=== PATIENT | female | born 1950 | race Caucasian/White ===

== ENCOUNTER → 2017-02-12 | Outpatient (CLI) | payer MEDICARE ==
[2017-02-12 11:52] LABS: Basophils # (A) 0.1 k/uL (0-0.2); Basophils % (A) 1 %; CH 28.2; CHCM 31.8; Eosinophils # (A) 0.2 k/uL (0-0.7); Eosinophils % (A) 2 %; HCT 43.5 % (34.0-46.0); HDW 2.32; Luc # (Auto) 0.19; Luc % (Auto) 3; Lymphocytes # (A) 1.7 k/uL (1.0-4.8); Lymphocytes % (A) 21 %; MCH 28.6 pg (25.0-35.0); MCHC 32.2 g/dL (31.0-37.0); Monocytes # (A) 0.4 k/uL (0-1.0); Monocytes % (A) 6 %; Neutrophils # (A) 5.2 k/uL (1.3-7.7); Neutrophils % (A) 67 %; RBC 4.89 m/uL (3.80-5.40); RDW 14.1 % (11.5-15.5); WBC 7.8 k/uL (3.8-10.6); WBC (Perox) 7.99
[2017-02-12 12:13] LABS: ALT 36 U/L (9-52); AST 25 U/L (14-36); Alkaline Phosphatase 89 U/L (38-126); Anion Gap 9 mmol/L; Blood Urea Nitrogen 14 mg/dL (7-17); Calcium 9.3 mg/dL (8.4-10.2); Carbon Dioxide 28 mmol/L (22-30); Chloride 105 mmol/L (98-107); Cholesterol 207 mg/dL (<200); Glucose 94 mg/dL (74-99); HDL Cholesterol 48 mg/dL (40-60); Non-African American GFR(MDRD) >60 (>60 ml/min/1.73 sqM); Potassium 4.6 mmol/L (3.5-5.1); Sodium 142 mmol/L (137-145); Total Bilirubin 0.7 mg/dL (0.2-1.3); Total Protein 7.4 g/dL (6.3-8.2); Triglycerides 107 mg/dL (<150)
== END | disposition home or self-care (01) ==
LOC: LABWHC1 10:56
PROVIDERS: ATTEND Internal Medicine
DX: E78.2 Mixed hyperlipidemia (principal); I10 Essential (primary) hypertension
CPT/HCPCS: 36415; 80053; 80061; 85025

== ENCOUNTER 2017-03-17 13:37 | Emergency (ER) | payer MEDICARE ==
[2017-03-17 13:50] VITALS: BP 112/74; PULSE 76; RESP 18; TEMP 98
--- NOTE | 2017-03-17 14:27 | ED ---
Skin/Abscess/FB HPI - General Chief complaint: Skin/Abscess/Foreign Body Stated complaint: Rash on Leg Time Seen by Provider: 03/17/17 14:00 Source: patient, RN notes reviewed Mode of arrival: ambulatory Limitations: no limitations - History of Present Illness Initial comments: This is a 66-year-old female with a history of previous lower extremity cellulitis who presents today with complaints of her rash to both sides of her medial shins. She states she's had been gardening and doing a lot of work and sitting on her legs also walking around and rocks recently she states she believes the rash again somewhat better after elevation last night when she slipped. She denies any fevers chills or sweats. No she is however getting over a recent attack of shingles to the left side of her back. She has no other complaints this time no open wounds to report to. MD complaint: rash - Related Data Allergies Allergy/AdvReac Type Severity Reaction Status Date / Time No Known Allergies Allergy Verified 03/17/17 13:50 Review of Systems ROS Statement: Those systems with pertinent positive or pertinent negative responses have been documented in the HPI. ROS Other: All systems not noted in ROS Statement are negative. Past Medical History Past Medical History: Cancer, Hyperlipidemia, Hypertension Additional Past Medical History / Comment(s): breast cancer History of Any Multi-Drug Resistant Organisms: None Reported Additional Past Surgical History / Comment(s): right mastectomy and reconstruction Past Psychological History: No Psychological Hx Reported Smoking Status: Former smoker Past Alcohol Use History: Occasional Past Drug Use History: None Reported General Exam - General Exam Comments Initial Comments: This is a well-developed well-nourished awake alert oriented 3 female Limitations: no limitations General appearance: alert, in no apparent distress Head exam: Present: atraumatic Eye exam: Present: normal appearance Neck exam: Present: normal inspection Extremities exam: Present: full ROM, normal capillary refill, other (There is a rash noted to both lower extremities anterior medially it does not sparkle does appear to be consistent with H med etiology though there are no open wounds. Some petechial component to it. No edema no lymphangitis no increased local temperature no obvious lymphadenopathy.). Absent: tenderness Neurological exam: Present: alert, oriented X3, CN II-XII intact Psychiatric exam: Present: normal affect, normal mood Skin exam: Present: warm, dry, intact, rash Course Vital Signs 03/17/17 13:45 Temperature 98.0 F Pulse Rate 76 Respiratory 18 Rate Blood Pressure 112/74 O2 Sat by Pulse 98 Oximetry Medical Decision Making - Medical Decision Making At this time no further workup was indicated the etiology appears to be from mild trauma. Patient was instructed about elevating her legs. She does have support stockings which are appropriate. I did recommend elevation of her legs to 3 times a day for 15-20 minutes at a time. As it does appear to be getting improved no further advice at this time is indicated. Disposition Clinical Impression: Petechial rash, Skin trauma Disposition: HOME SELF-CARE Condition: Good Instructions: Contusion in Adults (ED) Additional Instructions: Elevate your legs 3-4 times a day for 15-20 minutes. This is above your heart level. Referrals: Glenroy Weber MD [Primary Care Provider] - 1-2 days
== END 2017-03-17 14:41 | disposition home or self-care (01) ==
LOC: EC 13:37
DX: T14.8 Other injury of unspecified body region (principal); Z87.891 Personal history of nicotine dependence; W18.40XA Slipping, tripping and stumbling without falling, unspecified, initial encounter; Y92.69 Other specified industrial and construction area as the place of occurrence of the external cause; Y93.H2 Activity, gardening and landscaping
CPT/HCPCS: 99282

== ENCOUNTER → 2017-03-27 | Outpatient (CLI) | payer MEDICARE ==
--- NOTE | 2017-03-28 07:20 | WWHP ---
DATE OF SERVICE: 03/27/2017 CHIEF COMPLAINT: The patient is here for her routine gynecologic exam and mammogram. HPI: This is a 66-year-old G0 with an LMP of 2002. The patient is without gynecologic complaints and denies any postmenopausal bleeding. PAST MEDICAL HISTORY: Right breast cancer in 1990 and she is status post mastectomy with reconstruction, history of elevated cholesterol, seasonal allergies and chronic hypertension. She was also diagnosed with basal cell skin cancer. MEDICATIONS: 1. Lipitor 40 mg daily. 2. Lotrel 5/10 daily. 3. Desyrel q.h.s. 4. Lasix p.r.n. 5. Fish oil supplement daily. 6. CoQ10 daily. ALLERGIES: No known drug allergies. PAST SURGICAL HISTORY: Carpal tunnel surgery in 2015, tonsillectomy, right mastectomy in 1990, reconstructive breast surgery in 1990 and revision in 2002, left breast reduction surgery 2002 and colonoscopy [address] ADVOCATE HISTORY: She has been menopausal since 2002 and has no history of STDs. SOCIAL HISTORY: She quit smoking in 1990. She has about 2 to 3 alcoholic drinks per week and denies drug use. She is retired and has been since 1968. She spends the gustafson in [place]. FAMILY HISTORY: Paternal aunt had breast cancer. Sister had a PE. REVIEW OF SYSTEMS: She has lost about 6 pounds over the last year. She denies respiratory or cardiac problems. GI: Occasional stomach problems. She denies maltreatment or falling. : She denies any significant urinary leakage. PHYSICAL EXAM: Blood pressure 142/82. Height 5 feet 2 inches. Weight 232 pounds. Temperature 97.6, pulse 73. This is a well-developed, heavyset white female who is alert and oriented x3 in no acute distress. HEENT is within normal limits. NECK: Supple without mass or thyromegaly. CHEST AND LUNGS: Clear to auscultation. HEART: Regular rate and rhythm. Breasts are without mass or discharge. The right breast is consistent with previous mastectomy, status post reconstruction with an implant. There is no right breast nipple. Axillary exam is negative for adenopathy. BACK: Negative for CVA tenderness. ABDOMEN: Mildly obese, soft, nontender, without palpable masses. PELVIC EXAM: External genitalia reveals mild atrophy without lesions. Cervix and vagina reveal mild atrophy without lesions. There is no evidence of prolapse. The uterus is midposition, nongravid size and nontender. There are no palpable adnexal masses or tenderness. Rectovaginal exam is negative for mass or tenderness and is negative for occult blood. EXTREMITIES: Nontender. IMPRESSION: 1. A 66-year-old menopausal female with normal gynecologic exam. 2. History of right breast cancer with no evidence of recurrence. PLAN: 1. Pap smear was deferred since she had a normal one last year. 2. Self breast examination was discussed. 3. Left diagnostic mammogram will be done today. 4. Osteoporosis prevention was discussed. We will plan on repeating this in about 2020, since she states she had a normal one in 2014. 5. She does get flu shots in the fall. 6. She will return in one year.
--- NOTE | 2017-03-28 08:16 | MM ---
Reason for exam: additional evaluation requested from prior study. Last mammogram was performed 1 year ago. History: Patient is postmenopausal, has history of breast cancer at age 40, history of other cancer, and is nulliparous. Family history of breast cancer in paternal aunt. Silicone gel implant in the right breast, 2001. Reduction of the left breast. Physical Findings: Dr. Pérez did not find any significant physical abnormalities on exam. MG 3D Diag Mammo W/Cad LT CC, MLO, and XCCL view(s) were taken of the left breast. Prior study comparison: March 14, 2016, mammogram. March 11, 2016, mammogram. The breast tissue is heterogeneously dense. This may lower the sensitivity of mammography. Post surgical distortion middle left breast. No significant new findings when compared with previous films. These results were verbally communicated with the patient and result sheet given to the patient on 03/27/17. ASSESSMENT: Benign, BI-RAD 2 RECOMMENDATION: Follow-up diagnostic mammogram of the left breast in 1 year.
== END | disposition home or self-care (01) ==
LOC: WWCWWP 12:55
PROVIDERS: ATTEND Obstetrics & Gynecology
DX: Z85.3 Personal history of malignant neoplasm of breast (principal)
CPT/HCPCS: G0206; G0279

== ENCOUNTER → 2017-05-29 | Outpatient (CLI) | payer MEDICARE ==
--- NOTE | 2017-05-29 11:52 | XR ---
EXAMINATION TYPE: XR cervical spine comp DATE OF EXAM: 05/29/2017 COMPARISON: NONE HISTORY: 66-year-old female with cervical spine pain TECHNIQUE: 5 views FINDINGS: Bilateral hypertrophic facet arthropathy slightly greater on the right. Uncovertebral joint arthropat hy mid to lower cervical spine. No predental space widening or prevertebral soft tissue swelling. There is normal alignment of the ce rvical spine with mild to moderate degenerative disc interspace narrowing at C6-C7. The cervicothorac ic junction is obscured by the patient's shoulders not assessed. On the right, there is moderate bony spondylotic neuroforaminal narrowing at C3-C4 and C4-C5 and mild at C7. On the left, there is mild bony spondylotic neuroforaminal narrowing at C3-C4 and C5-C6 with severe a t C6-C7. Normal odontoid view. IMPRESSION: 1. The cervicothoracic junction is obscured by the patient's shoulders and not assessed. Otherwise, c ervical alignment is maintained. 2. Moderate multilevel spondylotic change especially with hypertrophic facet and uncovertebral joint arthropathy. 3. On the right, this results in moderate neural foraminal stenoses at C3-C4 and C4-C5 and severe on the left at C6-C7.
== END | disposition home or self-care (01) ==
LOC: RADXRMAIN 10:28
PROVIDERS: ATTEND Internal Medicine
DX: M99.71 Connective tissue and disc stenosis of intervertebral foramina of cervical region (principal); M47.812 Spondylosis without myelopathy or radiculopathy, cervical region; M46.02 Spinal enthesopathy, cervical region
CPT/HCPCS: 72050

== ENCOUNTER → 2018-04-02 | Outpatient (CLI) | payer MEDICARE ==
[2018-04-02 14:30] VITALS: BP 158/74; PULSE 80; RESP 18; TEMP 96.9; BMI 45.7
--- NOTE | 2018-04-02 14:57 | P.HPOB ---
History of Present Illness H&P Date: 04/02/18 Chief Complaint: The patient is here for her routine gynecologic exam and mammogram. This is a 67-year-old G0 with an LMP of 2002. The patient is without gynecologic complaints and denies any postmenopausal bleeding. Review of Systems Patient is gained 18 pounds over the last year. She denies respiratory, cardiac and G.I. problems. She denies maltreatment or problems with falling. : she denies any significant problems with urinary leakage. Past Medical History Past Medical History: Cancer (Right breast and basal cell skin cancer), Hyperlipidemia, Hypertension Additional Past Medical History / Comment(s): Seasonal allergies. 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 History of Any Multi-Drug Resistant Organisms: None Reported Past Surgical History: Breast Surgery (Right mastectomy in 1990 reconstructive breast surgery 1990 and revision in 2002.), Tonsillectomy Additional Past Surgical History / Comment(s): Colonoscopy 2009 and 2014. Past Psychological History: No Psychological Hx Reported Smoking Status: Former smoker (Quit 1990) Past Alcohol Use History: Occasional (0 3 per week) Past Drug Use History: None Reported Additional History: She's been since 1968 and is retired. Her has prostate cancer. She spends her gust[place]son in [place]. - Past Family History Sister(s) Family Medical History: Pulmonary Embolus Additional Family Medical History / Comment(s): Paternal aunt had breast cancer Medications and Allergies Home Medications Medication Instructions Recorded Confirmed Type Atorvastatin [Lipitor] 40 mg PO DAILY 04/02/18 04/02/18 History Furosemide [Lasix] 20 mg PO DAILY 04/02/18 04/02/18 History amLODIPine BESYLATE/BENAZEPRIL 1 cap PO DAILY 04/02/18 04/02/18 History [Lotrel 10-20 mg Capsule] traZODone HCL [Desyrel] 50 mg PO DAILY 04/02/18 04/02/18 History Allergies Allergy/AdvReac Type Severity Reaction Status Date / Time No Known Allergies Allergy Verified 03/17/17 13:50 Exam - Vital Signs Vital signs: Vital Signs Temp Pulse Resp BP 04/02/18 14:27 96.9 F L 80 18 158/74 Intake and Output 04/01/18 04/02/18 04/02/18 22:59 06:59 14:59 Other: Weight 113.398 kg Height 5'2", BMI 45.7. This is a well-developed well-nourished heavyset white female who is alert and oriented times 3 in no acute distress. HEENT: Within normal limits. NECK: Supple without mass or thyromegaly. CHEST AND LUNGS: Clear to auscultation. HEART: Regular rate and rhythm. BREASTS: Are without mass or discharge. Right breast is consistent with previous mastectomy and breast reconstruction with an implant. AXILLARY EXAM: Negative for adenopathy. BACK: Negative for CVA tenderness. ABDOMEN: Soft, obese, nontender, without palpable masses. PELVIC EXAM: Normal external genitalia with mild to moderate atrophy. Cervix and vagina appear normal with mild to moderate atrophy. There is no unusual discharge. There is no evidence of prolapse. The uterus is midposition, nongravid size and nontender. There are no palpable adnexal masses or tenderness. Bimanual examination is somewhat limited secondary to her size. RECTAL EXAM: rectovaginal exam is negative for mass or tenderness and is negative for occult blood. EXTREMITIES: Nontender. IMPRESSION: 1. 67-year-old menopausal female with normal gynecologic exam. 2. History of right breast cancer with no evidence of recurrence. PLAN: 1. Pap smear was performed. 2. Self breast awareness was discussed. 3. Diagnostic left mammogram will be done today. 4. Osteoporosis prevention was discussed. I've recommended bone density screening. She states she would like to do this next year. 5. She does get flu shots in the fall. 6. She will return in one year.
--- NOTE | 2018-04-03 08:38 | MM ---
Reason for exam: additional evaluation requested from prior study. Last mammogram was performed 1 year ago. History: Patient is postmenopausal, has history of breast cancer at age 40, history of other cancer, and is nulliparous. Family history of breast cancer in paternal aunt. Silicone gel implant in the right breast, 2001. Mastectomy of the right breast, 1990. Reduction of the left breast. Physical Findings: Dr. Pérez did not find any significant physical abnormalities on exam. MG 3D Diag Mammo W/Cad LT CC and MLO view(s) were taken of the left breast. Prior study comparison: March 27, 2017, left breast MG 3d diag mammo w/cad LT. March 14, 2016, mammogram. The breast tissue is heterogeneously dense. This may lower the sensitivity of mammography. Finding #1: There is a stable architectural distortion in the lower inner quadrant of the left breast consistent with known reduction changes. Finding #2: There are typically benign round calcifications in the left breast. There is no discrete abnormality. Benign left axillary lymph nodes redemonstrated. These results were verbally communicated with the patient and result sheet given to the patient on 04/02/18. ASSESSMENT: Benign, BI-RAD 2 RECOMMENDATION: Follow-up diagnostic mammogram of the left breast in 1 year.
== END | disposition home or self-care (01) ==
LOC: WWCWWP 13:25
PROVIDERS: ATTEND Obstetrics & Gynecology
DX: Z08 Encounter for follow-up examination after completed treatment for malignant neoplasm (principal); Z85.3 Personal history of malignant neoplasm of breast
CPT/HCPCS: 77065; G0279; 77061

== ENCOUNTER → 2019-05-27 | Outpatient (CLI) | payer MEDICARE ==
[2019-05-27 13:13] VITALS: BP 151/74; PULSE 87; RESP 18; TEMP 97.9; BMI 43.9
--- NOTE | 2019-05-27 13:56 | P.HPOB ---
History of Present Illness H&P Date: 05/27/19 Chief Complaint: The patient is here for her routine gynecologic exam and ma mmogram. This is a 68-year-old G0 with an LMP of 2002. The patient is without gynecologic complaints. The patient has been undergoing left shoulder physical therapy. She was told that she has a fatty growth behind the left shoulder. She denies any pain or symptoms from this. Review of Systems She has lost about 6 pounds over the last year. She denies respiratory, cardiac and G.I. problems. She denies maltreatment or problems with falling. : she denies any significant problems with urinary leakage. Past Medical History Past Medical History: Cancer, Hyperlipidemia, Hypertension Additional Past Medical History / Comment(s): Right breast cancer 1990 and a basal cell skin cancer. Seasonal allergies. 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 She has been since 1968 and is not sexually active. She is retired. She spends the gustafson in [place]. Her has prostate cancer. - Past Family History Sister(s) Family Medical History: Pulmonary Embolus Additional Family Medical History / Comment(s): Paternal aunt had breast cancer Father Additional Family Medical History / Comment(s): Heart Disease;. Paternal aunt had breast cancer; Mother Family Medical History: Pulmonary Embolus Additional Family Medical History / Comment(s): Heart Disease; Medications and Allergies Home Medications Medication Instructions Recorded Confirmed Type Atorvastatin [Lipitor] 40 mg PO HS 04/02/18 05/27/19 History Furosemide [Lasix] 20 mg PO DAILY 04/02/18 05/27/19 History amLODIPine BESYLATE/BENAZEPRIL 1 cap PO DAILY 04/02/18 05/27/19 History [Lotrel 10-20 mg Capsule] traZODone HCL [Desyrel] 50 mg PO HS 04/02/18 05/27/19 History Aspirin 325 mg PO QAM 05/27/19 05/27/19 History Allergies Allergy/AdvReac Type Severity Reaction Status Date / Time No Known Allergies Allergy Verified 05/27/19 13:01 Exam Vital Signs Temp Pulse Resp BP Pulse Ox 05/27/19 13:06 97.9 F 87 18 151/74 96 Intake and Output 05/26/19 05/27/19 05/27/19 22:59 06:59 14:59 Other: Weight 108.862 kg Height 5'2", weight 240 pounds, BMI 43.9. This is a well-developed well-nourished heavyset white female who is alert and oriented times 3 in no acute distress. HEENT: Within normal limits. NECK: Supple without mass or thyromegaly. CHEST AND LUNGS: Clear to auscultation. HEART: Regular rate and rhythm. BREASTS: Are without mass or discharge. The right breast is consistent with previous mastectomy and reconstruction with a breast implant. AXILLARY EXAM: Negative for adenopathy. BACK: Negative for CVA tenderness. There is a lipoma in the area of the left scapula. This is soft and nontender. This measures approximately 4.5x 4.5 cm. ABDOMEN: Soft, nontender, without palpable masses. PELVIC EXAM: Normal external genitalia with mild atrophy. Cervix and vagina appear normal mild atrophy. There is no unusual discharge. There is no evidence of prolapse. The uterus is midposition, nongravid size and nontender. There are no palpable adnexal masses or tenderness. RECTAL EXAM: rectovaginal exam is negative for mass or tenderness and is negative for occult blood. EXTREMITIES: Nontender. IMPRESSION: 1. 68-year-old menopausal female with normal gynecologic exam. 2. Benign appearing left lipoma in the area of the left scapula. 3. History of right breast cancer status post mastectomy and reconstruction with implant. No evidence of recurrence on exam today. PLAN: 1. Pap smears have been discontinued. She has not had any cervical problems for more than 20 years and has had adequate screening and is greater than 65 years of age. She had negative Pap smears on 04/02/2018, 03/14/2016, and 02/17/2014. 2. Self breast awareness was discussed with the patient. 3. Diagnostic left mammogram will be done today. 4. Osteoporosis prevention was discussed. I have stressed the importance of adequate calcium, vitamin D and regular exercise. Recommended amounts of calcium and vitamin D were also discussed. Her last bone density test was approximately 2013 per the patient. I've recommended that we repeat the bone density test and the order slip was given to the patient for this. 5. She does get flu shots in the fall. 6. Weight control was discussed with the patient. I have stressed the importance of good nutrition, regular meals, increased fiber and regular exercise. 7. The patient was advised to return in 1-2 years for her well woman examination.
--- NOTE | 2019-05-28 10:59 | MM ---
Reason for exam: additional evaluation requested from prior study. Last mammogram was performed 1 year and 2 months ago. History: Patient is postmenopausal, has history of breast cancer at age 40, history of other cancer, and is nulliparous. Family history of breast cancer in paternal aunt. Reduction of the left breast, 2002. Silicone gel implant in the right breast, 2001. Mastectomy of the right breast, 1990. Physical Findings: Dr. Pérez did breast exam. MG 3D Diag Mammo W/Cad LT CC and MLO view(s) were taken of the left breast. Prior study comparison: April 02, 2018, left breast MG 3d diag mammo w/cad LT. March 27, 2017, left breast MG 3d diag mammo w/cad LT. The breast tissue is heterogeneously dense. This may lower the sensitivity of mammography. Benign appearing calcifications in the left breast. Upper inner quadrant distortion on the left at middle depth appears centrally lucent with associated benign appearing calcifications, possibly fat necrosis from prior reduction. These results were verbally communicated with the patient and result sheet given to the patient on 05/27/19. ASSESSMENT: Incomplete: need additional imaging evaluation, BI-RAD 0 RECOMMENDATION: Ultrasound of the left breast.
--- NOTE | 2019-05-28 11:01 | USB ---
Reason for exam: additional evaluation requested from abnormal screening. History: Patient is postmenopausal, has history of breast cancer at age 40, history of other cancer, and is nulliparous. Family history of breast cancer in paternal aunt. Reduction of the left breast, 2002. Silicone gel implant in the right breast, 2001. Mastectomy of the right breast, 1990. US Breast Limited LT Left limited breast ultrasound including focal area of concern, retroareolar and axilla demonstrates no cystic or solid lesion seen. No focal mass seen that was reproducible. Distortion appears stable on mammogram back to 2015. These results were verbally communicated with the patient and result sheet given to the patient on 05/27/19. ASSESSMENT: Probably benign, BI-RAD 3 RECOMMENDATION: Follow-up diagnostic mammogram and ultrasound of the left breast in 6 months.
--- NOTE | 2019-06-03 17:48 | P.PN ---
Progress Note - Text Progress Note Date: 06/03/19 Left mammogram done on 05/27/2019 required a left breast ultrasound. The findings were probably benign. Recommendation was for follow-up diagnostic mammogram and ultrasound of the left breast in 6 months. The patient was verbally given the results at the time of her imaging studies on 05/27/2019. The order slip for left diagnostic mammogram aunt left breast ultrasound to be done in November 2019 was mailed to the patient.
== END ==
LOC: WWCWWP 12:48
PROVIDERS: ATTEND Obstetrics & Gynecology
DX: Z08 Encounter for follow-up examination after completed treatment for malignant neoplasm (principal); R92.8 Other abnormal and inconclusive findings on diagnostic imaging of breast; Z85.3 Personal history of malignant neoplasm of breast
CPT/HCPCS: 77065; 76642; G0279; 77061

== ENCOUNTER → 2020-04-08 | Outpatient (CLI) | payer MEDICARE ==
--- NOTE | 2020-04-09 10:46 | MM ---
Reason for exam: follow-up at short interval from prior study. Last mammogram was performed 10 months ago. History: Patient is postmenopausal, has history of breast cancer at age 40, history of other cancer, and is nulliparous. Family history of breast cancer in paternal aunt. Reduction of the left breast, 2002. Silicone gel implant in the right breast, 2001. Mastectomy of the right breast, 1990. Took hormonal contraceptives for 7 years. Took estrogen for 2 years. Physical Findings: Nurse did not find any significant physical abnormalities on exam. MG 3D Diag Mammo W/Cad LT CC and MLO view(s) were taken of the left breast. Prior study comparison: May 27, 2019, left breast MG 3d diag mammo w/cad LT. April 02, 2018, left breast MG 3d diag mammo w/cad LT. The breast tissue is heterogeneously dense. This may lower the sensitivity of mammography. Stable distortion left upper medial breast. No significant new findings when compared with previous films. These results were verbally communicated with the patient and result sheet given to the patient on 04/08/20. ASSESSMENT: Benign, BI-RAD 2 RECOMMENDATION: Follow-up diagnostic mammogram of the left breast in 1 year. Manage patient on a clinical basis.
--- NOTE | 2020-04-09 10:47 | USB ---
Reason for exam: follow-up at short interval from prior study. History: Patient is postmenopausal, has history of breast cancer at age 40, history of other cancer, and is nulliparous. Family history of breast cancer in paternal aunt. Reduction of the left breast, 2002. Silicone gel implant in the right breast, 2001. Mastectomy of the right breast, 1990. Took hormonal contraceptives for 7 years. Took estrogen for 2 years. US Breast LT Left complete breast ultrasound includes all four quadrants, the retroareolar region and axilla. Finding demonstrates no cystic or solid lesion seen. These results were verbally communicated with the patient and result sheet given to the patient on 04/08/20. ASSESSMENT: Negative, BI-RAD 1 RECOMMENDATION: Follow-up diagnostic mammogram of the left breast in 1 year.
== END | disposition home or self-care (01) ==
LOC: RADMAMWWP 15:22
PROVIDERS: ATTEND Obstetrics & Gynecology
DX: Z08 Encounter for follow-up examination after completed treatment for malignant neoplasm (principal); R92.8 Other abnormal and inconclusive findings on diagnostic imaging of breast; Z85.3 Personal history of malignant neoplasm of breast
CPT/HCPCS: 77065; 76641; G0279; 77061

== ENCOUNTER → 2021-06-23 | Outpatient (CLI) | payer MEDICARE ==
--- NOTE | 2021-06-23 11:20 | MM ---
Reason for exam: additional evaluation requested from prior study. Last mammogram was performed 1 year and 2 months ago. History: Patient is postmenopausal, has history of breast cancer at age 40, history of other cancer, and is nulliparous. Family history of breast cancer in paternal aunt. Reduction of the left breast, 2002. Silicone gel implant in the right breast, 2001. Mastectomy of the right breast, 1990. Took hormonal contraceptives for 7 years. Took estrogen for 2 years. Physical Findings: Nurse did not find any significant physical abnormalities on exam. MG 3D Diag Mammo W/Cad LT CC and MLO view(s) were taken of the left breast. Prior study comparison: April 08, 2020, left breast MG 3d diag mammo w/cad LT. May 27, 2019, left breast MG 3d diag mammo w/cad LT. May 27, 2019, left breast US breast limited LT. April 02, 2018, left breast MG 3d diag mammo w/cad LT. March 27, 2017, left breast MG 3d diag mammo w/cad LT. The breast tissue is heterogeneously dense. This may lower the sensitivity of mammography. Stable post surgical change and a few dystrophic and secretory calcifications. Medial asymmetric density is unchanged. These results were verbally communicated with the patient and result sheet given to the patient on 06/23/21. ASSESSMENT: Benign, BI-RAD 2 RECOMMENDATION: Routine screening mammogram of both breasts in 1 year.
== END | disposition home or self-care (01) ==
LOC: RADMAMWWP 10:08
PROVIDERS: ATTEND Family Medicine
DX: R92.1 Mammographic calcification found on diagnostic imaging of breast (principal); Z78.0 Asymptomatic menopausal state; Z85.3 Personal history of malignant neoplasm of breast; Z80.3 Family history of malignant neoplasm of breast; Z79.3 Long term (current) use of hormonal contraceptives
CPT/HCPCS: 77065; G0279; 77061

== ENCOUNTER → 2022-06-28 | Outpatient (CLI) | payer MEDICARE ==
--- NOTE | 2022-07-03 15:29 | MM ---
Reason for Exam: Screening (asymptomatic). Last screening mammogram was performed 12 month(s) ago. Patient History: Menarche at age 11. Patient has no children. Postmenopausal. Other cancer. Breast cancer, age 40. Patient used Estrogen for 2 years. Patient used Hormonal Contraceptives for 7 years. 2002, Reduction on the Left side. 1990, Mastectomy on the Right side. 2001, Implant on the right side. Paternal aunt had breast cancer. Prior Study Comparison: 12/19/1999 Right Diagnostic Ultrasound, [facility]. 03/11/2016 Screening Mammogram, Unknown. 03/14/2016 Screening Mammogram, Unknown. 03/27/2017 Left Diagnostic Mammogram, [facility]. 04/02/2018 Left Diagnostic Mammogram, [facility]. 05/27/2019 Left Diagnostic Mammogram, [facility]. 05/27/2019 Left Diagnostic Ultrasound, [facility]. 04/08/2020 Left Diagnostic Mammogram, [facility]. 04/08/2020 Left Diagnostic Ultrasound, [facility]. 06/23/2021 Left Diagnostic Mammogram, [facility]. Tissue Density: The breast tissue is heterogeneously dense. This may lower the sensitivity of mammography. Findings: Analyzed By CAD. There appears to be some stable distortion within the left mid breast. Benign-appearing coarse calcifications are adjacent. No suspicious groups of microcalcifications, spiculated or lobular masses, architectural distortion or other secondary signs of malignancy are mammographically apparent. Overall Assessment: Benign, BI-RAD 2 Management: Screening Mammogram of the left breast in 1 year. A negative mammogram report should not preclude additional follow up of suspicious palpable abnormalities. Patient should continue monthly self breast exam. A clinical breast exam by your physician is recommended on an annual basis and results should be correlated with mammographic findings. Electronically signed and approved by: Bob Eden D.O. Radiologis
== END | disposition home or self-care (01) ==
LOC: RADMAMWWP 13:02
PROVIDERS: ATTEND Family Medicine
DX: Z12.31 Encounter for screening mammogram for malignant neoplasm of breast (principal); Z78.0 Asymptomatic menopausal state; Z80.3 Family history of malignant neoplasm of breast; Z85.3 Personal history of malignant neoplasm of breast; Z98.890 Other specified postprocedural states
CPT/HCPCS: 77067

== ENCOUNTER → 2023-05-23 | Outpatient (CLI) | payer MEDICARE ==
--- NOTE | 2023-05-23 17:52 | XR ---
EXAMINATION TYPE: XR Hip LT and AP Pelvis DATE OF EXAM: 05/23/2023 4:39 PM INDICATION: Patient age:Female; 72 years old; Reason for study: M25.552, R10.2; [facility]. COMPARISON: None. TECHNIQUE: The left hip was examined in the frontal and lateral projections and a AP pelvis. FINDINGS: No evidence of any acute osseous pathology, joint dislocation, or soft tissue swelling. No significant joint space narrowing or sclerosis. No marginal osteophytosis. Incidental pelvic phleboli ths. IMPRESSION: No acute osseous pathology.
== END | disposition home or self-care (01) ==
LOC: RADXRMAIN 16:19
PROVIDERS: ATTEND Family Medicine
DX: M25.552 Pain in left hip (principal); R10.2 Pelvic and perineal pain
CPT/HCPCS: 73502

== ENCOUNTER → 2023-06-29 | Outpatient (CLI) | payer MEDICARE ==
--- NOTE | 2023-07-02 10:02 | MM ---
Reason for Exam: Screening (asymptomatic). Last screening mammogram was performed 12 month(s) ago. Patient History: Menarche at age 11. Patient has no children. Postmenopausal. Breast cancer, right, age 40. Patient used Estrogen for 2 years. Patient used Hormonal Contraceptives for 7 years. 2002, Reduction on the Left side. 1990, Mastectomy on the Right side. 2001, Implant on the right side. Paternal aunt had breast cancer. Prior Study Comparison: 04/08/2020 Left Diagnostic Mammogram, [facility]. 06/23/2021 Left Diagnostic Mammogram, [facility]. 06/28/2022 Bilateral MG 3D screening mammo w/cad, [facility]. Tissue Density: Left: The breast tissue is heterogeneously dense. This may lower the sensitivity of mammography. Findings: Analyzed By CAD. There is no suspicious group of microcalcifications or new suspicious mass in either breast. Overall Assessment: Benign, BI-RAD 2 Management: Screening Mammogram of both breasts in 1 year. . Patient should continue monthly self-breast exams. A clinical breast exam by your physician is recommended on an annual basis. This exam should not preclude additional follow-up of suspicious palpable abnormalities. Note on Argelia scores and lifetime risk: 1. A Argelia score greater than 3% is considered moderate risk. If this is the case, consider specialist referral to assess eligibility for a risk reducing agent. 2. If overall lifetime risk for the development of breast cancer is 20% or higher, the patient may qualify for future screening with alternating mammogram and breast MRI. Electronically signed and approved by: Alexandr Hernandez M.D. Radiologis
== END | disposition home or self-care (01) ==
LOC: RADMAMWWP 13:15
PROVIDERS: ATTEND Family Medicine
DX: Z12.31 Encounter for screening mammogram for malignant neoplasm of breast (principal); Z78.0 Asymptomatic menopausal state; Z85.3 Personal history of malignant neoplasm of breast; Z80.3 Family history of malignant neoplasm of breast
CPT/HCPCS: 77067

== ENCOUNTER → 2024-06-30 | Outpatient (CLI) | payer MEDICARE ==
--- NOTE | 2024-07-01 10:03 | MM ---
Reason for Exam: Screening (asymptomatic). Last screening mammogram was performed 12 month(s) ago. Patient History: Menarche at age 11. Patient has no children. Postmenopausal. Breast cancer, right, age 40. Patient used Estrogen for 2 years. Patient used Hormonal Contraceptives for 7 years. 2002, Reduction on the Left side. 1990, Mastectomy on the Right side. 2001, Implant on the right side. Paternal aunt had breast cancer. Prior Study Comparison: 06/23/2021 Left Diagnostic Mammogram, [facility]. 06/28/2022 Bilateral MG 3D screening mammo w/cad, [facility]. 06/29/2023 Left MG 3D scr yazan unilateral w/cad., [facility]. Tissue Density: Left: There are scattered areas of fibroglandular density. Findings: Right breast: There is no suspicious group of microcalcifications or new suspicious mass. Left breast: There is no suspicious group of microcalcifications or new suspicious mass. Overall Assessment: Negative, BI-RAD 1 Management: Screening Mammogram of both breasts in [address] [facility] will attempt to contact patient to return for supplemental views and ultrasound if indicated. Patient should continue monthly self-breast exams. A clinical breast exam by your physician is recommended on an annual basis. This exam should not preclude additional follow-up of suspicious palpable abnormalities. Note on Argelia scores and lifetime risk: 1. A Argelia score greater than 3% is considered moderate risk. If this is the case, consider specialist referral to assess eligibility for a risk reducing agent. 2. If overall lifetime risk for the development of breast cancer is 20% or higher, the patient may qualify for future screening with alternating mammogram and breast MRI. [facility], , 07/01/2024 9:59 AM. Electronically signed and approved by: Douglas Lala DO
== END | disposition home or self-care (01) ==
LOC: RADMAMWWP 13:03
PROVIDERS: ATTEND Family Medicine
DX: Z12.31 Encounter for screening mammogram for malignant neoplasm of breast
CPT/HCPCS: 77067